=== PATIENT | female | born 1965 | race African-American/Black ===

== ENCOUNTER 2020-12-02 20:48 | Emergency (ER) | payer OTHER, SELFPAY ==
--- NOTE | ~2020-12-02 | CT_ITS ---
EXAMINATION: CT ABDOMEN AND PELVIS WITH CONTRAST CLINICAL INFORMATION: Right upper quadrant pain. COMPARISON: CT abdomen/pelvis dated from 02/03/2019. TECHNIQUE: Multidetector volumetric images were obtained from the superior aspect of the liver through the pubic symphysis following administration 85 mL of Omnipaque 350 intravenous contrast. Sagittal and coronal reformatted images were obtained on the technologist's workstation. Oral contrast: No This CT examination was performed using dose optimization techniques as appropriate, variously including the following: *Automated exposure control *Adjustment of mA and/or kV according to patient size (this includes techniques or standardized protocols for targeted exams where dose is matched to indication/reason for exam; i.e. extremities or head) *Use of iterative reconstruction technique DLP: 1100 mGy-cm FINDINGS: LUNG BASES: Dependent atelectasis. No focal consolidation or pleural effusion. LIVER, GALLBLADDER, AND BILIARY TREE: The liver is normal in size, shape, and attenuation. No focal hepatic lesion or biliary ductal dilatation is present. Cholelithiasis without gallbladder wall thickening or inflammatory changes to suggest acute cholecystitis. PANCREAS: No focal abnormalities. No significant peripancreatic fat stranding or free fluid. The main pancreatic duct is nondilated. SPLEEN: Unremarkable. ADRENAL GLANDS: Unremarkable. KIDNEYS AND URETERS: The kidneys are normal in size, shape, and attenuation. There are a few punctate nonobstructing stones. No hydronephrosis, or hydroureter. No perinephric stranding. BLADDER: Partially under distended without focal abnormalities. GASTROINTESTINAL TRACT: Small hiatal hernia. The stomach and the small bowel are nondilated. The distal colon is underdistended which limits assessment of wall thickening. However, there are no significant pericholecystic inflammatory changes to suspect colitis or diverticulitis. Normal appendix. ABDOMINAL WALL: Small fat-containing umbilical hernia. LYMPH NODES: No lymphadenopathy by size criteria. VASCULAR: Unremarkable. PELVIC VISCERA: No adnexal lesions. Normal appearance of the uterus. OSSEOUS STRUCTURES: No acute or aggressive osseous abnormalities. CT/CT abdomen pelvis w con IMPRESSION: Distal colon is under distended limiting assessment of wall thickening. However, there are no significant surrounding inflammatory changes to suspect colitis or diverticulitis. Cholelithiasis without evidence of acute cholecystitis. Nephrolithiasis without evidence of hydronephrosis or hydroureter.
[2020-12-02 21:09] VITALS: BP 108/75; PULSE 74; RESP 18; TEMP 36.8; O2SAT 99; BMI 47.2
[2020-12-02 21:59] LABS: Appearance Urine HAZY; Color Urine YELLOW; Glucose Urine UA NEG (NEG); Leukocyte Esterase Urine NEG (NEG); Nitrite Urine NEG (NEG); Specific Gravity - Urine >= 1.030 (1.005-1.025); UACC Culture Trigger NO; Urine Blood 1+ (NEG); Urine Ketones 5 MG/DL (NEG); Urine Protein TRACE MG/DL (NEG-TRACE)
[2020-12-02 22:03] LABS: MANUAL DIFF FLAG NO
[2020-12-02 22:06] LABS: Basophils Absolute Auto 0.1 X10*3/uL (0.0-0.2); Basophils Percent Auto 0.7 % (0-2); Eosinophils Absolute Auto 0.1 X10*3/uL (0.0-0.4); Eosinophils Percent Auto 0.7 % (0-4); Hematocrit 41.7 % (37-47); Hemoglobin 13.1 g/dl (12.0-16.0); Imm Gran Abs Auto 0.01 X10*3/uL (0.00-0.03); Imm Gran Pct Auto 0.1 % (0.0-0.4); Lymphocytes Absolute Auto 1.6 X10*3/uL (1.2-4.9); Lymphocytes Percent Auto 23.6 % (20-40); Mean Corpuscular HGB Conc 31.4 g/dl (31.0-35.0); Mean Corpuscular Hemoglobin 27.3 pg (27.0-33.0); Mean Corpuscular Volume 86.9 fL (80-98); Monocytes Absolute Auto 0.3 X10*3/uL (0.1-1.2); Monocytes Percent Auto 4.6 % (2-11); Neutrophils Absolute Auto 4.9 X10*3/uL (2.0-8.3); Neutrophils Percent Auto 70.3 % (45-73); Platelet Count 283 X10*3/uL (160-400); Red Cell Distribution Width 14.8 % (11.0-16.0)
[2020-12-02 22:24] LABS: Alanine Aminotransferase 22 U/L (0-31); Albumin Level 4.4 g/dL (3.5-5.0); Alkaline Phosphatase 71 U/L (39-117); Anion Gap 13 (12-20); Aspartate Amino Transferase 22 U/L (5-31); Bilirubin Total 0.8 mg/dL (0.0-1.0); Blood Urea Nitrogen 8 mg/dL (9-16); Calcium 9.6 mg/dL (8.4-10.2); Carbon Dioxide 30 mmol/L (22-29); Chloride 100 mmol/L (96-108); Creatinine Clr Calc Pharmacy 103.5; Estimated Glomerular Filt Rate > 60; Glucose Random 121 mg/dL (60-115); Lipase 17 U/L (8-78); Potassium 3.3 mmol/L (3.3-5.1); Sodium 140 mmol/L (135-145); Total Protein 7.6 g/dL (6.5-8.0)
[2020-12-02 22:46] LABS: Bacteria Urine TRACE /LPF; Squamous Epithelial Cell Urine 3+ /LPF; WBC Urine 0 /HPF (0-4)
[2020-12-02 22:47] LABS: Calcium Oxalate Crystals Urine 3+ /LPF; Mucus Urine 2+ /LPF
[2020-12-02] MEDS: ondansetron HCL 4 MG/2 ML VIAL IVPUSH (23:15)
[2020-12-02] MEDS: HYDROmorphone HCl 0.5 MG/0.5 ML SYRINGE IVPUSH (23:15)
[2020-12-03] MEDS: iohexoL 350 MG/ML 100 ML INFUS..BTL 85 ML IV (00:04)
--- NOTE | 2020-12-03 00:28 | ED.ABDPAIN ---
HPI - Abdominal Pain General Chief Complaint: Abdominal Pain Stated Complaint: vomitting, side abd pain Time Seen by Provider: 12/02/20 22:57 History of Present Illness HPI narrative: Patient is a 55-year-old female presents today with having abdominal pain in the epigastric area radiating to the flank area. The pain is sharp. Happen after eating eggplant promagia. No coughing congestion upper respiratory symptoms. Patient passing gas. No abdominal surgery in the past. No fever no chills. History of gallstones. Patient from home. No chest pain. No diaphoresis. No vomiting. Positive nausea earlier. Related Data Previous Rx's Medication Instructions Recorded ondansetron 4 mg disintegrating 4 mg PO TID PRN 5 Days #10 tab 12/03/20 tablet oxycodone 5 mg tablet 5 mg PO Q8H PRN #7 tab 12/03/20 pantoprazole 40 mg tablet,delayed 40 mg PO DAILY #14 tab 12/03/20 release (Protonix) Allergies Allergy/AdvReac Type Severity Reaction Status Date / Time No Known Allergies Allergy Verified 12/02/20 21:49 [No Known Allergies*] Review of Systems Review of Systems Positive abdominal pain in the right upper quadrant No vomiting No diarrhea No travel All systems reviewed otherwise negative Physical Exam Vital Signs: Vital Signs: Last Vital Signs Temp 98.2 F 12/02/20 21:09 Pulse 74 12/02/20 21:09 Resp 18 12/02/20 21:09 BP 108/75 12/02/20 21:09 Pulse Ox 99 12/02/20 21:09 Body Mass Index 47.2 Appearance: Alert. Oriented X3. No acute distress. Eyes: Pupils equal, round and reactive to light. ENT: Pharynx normal. Neck: Normal inspection. Neck supple. No lymph nodes noted. No crepitus CVS: Normal heart rate and rhythm. Pulses normal. Normal S1 and S2 Respiratory: No respiratory distress. Breath sounds normal. No Wheezing. No rales Abdomen: Soft and nontender. No rigidity. No distention. good BS x4 Skin: Skin warm and dry. Normal skin color. Normal skin turgor. Extremities: No lower extremity edema. Neurovascular intact to all extremities. No Lacerations. No Rash Neuro: Oriented X 3. No motor deficit. No sensory deficit. Moving all extermities. No slurred speech MDM - Abdominal Pain MDM Narrative Medical decision making narrative: Patient's EKG showed a sinus pattern heart rate was 70 CA QRS QT within normal limits is no acute ST segment elevation noted. No chest pain or shortness of breath making ACS unlikely. well appearing no distress. CT scan of the abdomen showed no abscess no perforation. No pancreatitis. No evidence of appendicitis. No kidney stone. No evidence for cholecystitis. In the setting patient also had normal liver enzymes. Making cholecystitis much less likely. Given Maalox for pain with moderate relief. Will start patient on a PPI. Will discharge patient home. Currently stable condition. Differential Diagnosis Differential diagnosis: Likely abdominal pain, aortic dissection, acute appendicitis, bowel perforation, calculus of kidney, constipation, diverticulitis, endometriosis, gastroenteritis, gastritis, pancreatitis, peptic ulcer disease, renal colic and small bowel obstruction Medical Records Attestation: I reviewed the patient's medical records. Lab Data Attestation: I reviewed the patient's lab results. Result diagrams: 12/02/20 21:58 12/02/20 21:58 Labs: Lab Results 12/02/20 12/02/20 12/02/20 Range/Units 21:52 21:58 21:58 WBC 7.0 (4.8-10.8) X10*3/uL RBC 4.80 (4.20-5.50) X10*6/uL Hgb 13.1 (12.0-16.0) g/dl Hct 41.7 (37-47) % MCV 86.9 (80-98) fL MCH 27.3 (27.0-33.0) pg MCHC 31.4 (31.0-35.0) g/dl RDW 14.8 (11.0-16.0) % Plt Count 283 (160-400) X10*3/uL MPV 9.0 L (9.4-12.3) fL Immature Gran % (Auto) 0.1 (0.0-0.4) % Neut % (Auto) 70.3 (45-73) % Lymph % (Auto) 23.6 (20-40) % [place] % (Auto) 4.6 (2-11) % Eos % (Auto) 0.7 (0-4) % Baso % (Auto) 0.7 (0-2) % Lymph # (Auto) 1.6 (1.2-4.9) X10*3/uL [place] # (Auto) 0.3 (0.1-1.2) X10*3/uL Eos # (Auto) 0.1 (0.0-0.4) X10*3/uL Baso # (Auto) 0.1 (0.0-0.2) X10*3/uL Abs Immat Gran (auto) 0.01 (0.00-0.03) X10*3/uL Absolute Neuts (auto) 4.9 (2.0-8.3) X10*3/uL Absolute Nucleated RBC 0.000 (0.0-0.012) X10*3/uL Nucleated RBC % (auto) 0.0 (0.0-0.2) /100WBC Sodium 140 (135-145) mmol/L Potassium 3.3 (3.3-5.1) mmol/L Chloride 100 (96-108) mmol/L Carbon Dioxide 30 H (22-29) mmol/L Anion Gap 13 (12-20) BUN 8 L (9-16) mg/dL Creatinine 0.82 (0.5-1.4) mg/dL Estim Creat Clear Calc 103.5 Estimated GFR > 60 Random Glucose 121 H (60-115) mg/dL Calcium 9.6 (8.4-10.2) mg/dL Total Bilirubin 0.8 (0.0-1.0) mg/dL AST 22 (5-31) U/L ALT 22 (0-31) U/L Alkaline Phosphatase 71 (39-117) U/L Total Protein 7.6 (6.5-8.0) g/dL Albumin 4.4 (3.5-5.0) g/dL Lipase 17 (8-78) U/L Urine Color YELLOW Urine Appearance HAZY Urine pH 6.0 (5.0-8.0) Ur Specific [place] >= 1.030 H (1.005-1.025) Urine Protein TRACE (NEG-TRACE) MG/DL Urine Glucose (UA) NEG (NEG) MG/DL Urine Ketones 5 (NEG) MG/DL Urine Blood 1+ H (NEG) Urine Nitrite NEG (NEG) Ur Leukocyte Esterase NEG (NEG) Urine RBC 1-4 (0) /HPF Urine WBC 0 (0-4) /HPF Ur Squamous Epith Cells 3+ /LPF Calcium Oxalate Crystal 3+ /LPF Urine Bacteria TRACE /LPF Urine Mucus 2+ /LPF Discharge Plan Discharge Clinical Impression: Abdominal pain Patient Disposition: Home, Self-Care Instructions: Gastritis (ED), Biliary Colic (ED), Abdominal Pain (ED) Prescriptions: New ondansetron 4 mg tablet,disintegrating 4 mg PO TID PRN (Reason: nausea and vomiting) 5 Days Qty: 10 RF: 0 oxycodone 5 mg tablet 5 mg PO Q8H PRN (Reason: pain) Qty: 7 RF: 0 pantoprazole [Protonix] 40 mg tablet,delayed release (DR/EC) 40 mg PO DAILY Qty: 14 RF: 0 Referrals: Lucia Lopez NP [Primary Care Provider] - 2 days Jose Argueta MD [Physician] - 2 days (For possible biliary colic) Stand Alone Forms: Work/School Release [facility] Past Medical History Attestation statement: The following information was validated with the patient. Medical History Hypertension Social History Social History Advance Directives: No Advance Directives Information Provided: No
--- NOTE | 2020-12-03 00:29 | ECG_ITS ---
Test Reason : WEAKNESS Blood Pressure : / mmHG Vent. Rate : 070 BPM Atrial Rate : 070 BPM P-R Int : 200 ms QRS Dur : 090 ms QT Int : 406 ms P-R-T Axes : 066 010 004 degrees QTc Int : 438 ms Normal sinus rhythm Minimal voltage criteria for LVH, may be normal variant Nonspecific T wave abnormality Abnormal ECG When compared with ECG of 04-FEB-2019 00:49, Nonspecific T wave abnormality is now Present Referred By: Monika Medley Electronically Signed By:FRANCIS LIM
[2020-12-03] MEDS: Magnesium Hydrox/Alum Hydrox 30 ML ORAL.SUSP PO (00:38)
[2020-12-03 01:17] VITALS: BP 132/62; PULSE 71; RESP 18; TEMP 37.2; O2SAT 97
--- NOTE | 2020-12-03 01:18 | PC.NURSE ---
Pt alert and oriented x4, calm and cooperative. Pt states pain persists but has decreased since coming to ER. Pt educated on CT scan results. Pt and spouse educated on dc and stated an understanding. IV removed. Vitals stable. Pt ambulated out to privat car.
== END 2020-12-03 01:36 | disposition home or self-care (01) ==
PROVIDERS: Emergency Provider Emergency Medicine Emergency Medical Services; PCP Nurse Practitioner Family
DX: R10.13 Epigastric pain (principal); R07.89 Other chest pain; Z79.899 Other long term (current) drug therapy
CPT/HCPCS: 36415; 74177; 80053; 81001; 81003; 83690; 85025; 93005; 96374; 96375; 99284; 99285; J1170; J2405; Q9967